=== PATIENT | male | born 1945 | race Caucasian/White ===

== ENCOUNTER → 2017-05-08 | Outpatient (CLI) | payer MEDICARE, OTHER ==
[~2017-05-08] MED LIST: ACTOS PO; ADVAIR 250-501 EACH IH; ALBUTEROL17 G1 INH; ALLERGY SHOTS; AMARYL PO; JANUVIA PO; LANTUS100 U/ML; LIPITOR PO; LISINOPRIL PO; PHENERGAN W/CO120 ML PO; ZITHROMAX PO
--- NOTE | ~2017-05-08 | CT57 ---
[facility] A Service of [facility] RADIOLOGY TEXT RESULTS PATIENT: SOSA RODRIGUEZ LOCATION: [facility] : 49 UNIT #: [id number] AGE: [address]: Nelly Sims SEX: M ORDER DR: [id number] [facility] [address] [place], [place] [address] [id number] O MR#: [id number] Acc #: [id number] NAME: SOSA RODRIGUEZ. : 1945 SEX: M STUDY DATE/TIME: 05/08/2017 14:43 UNIT: [facility] ROOM: STUDY DESCRIPTION: CT Chest Wo Cont Attending Physician: Nelly Sims A.P.R.N. Referring Physician: Nelly Sims A.P.R.N. Ordering Physician: Nelly Sims A.P.R.N. Primary Care Physician: Bertin Barrera M.D. MEDICAL IMAGING REPORT This report is preliminary unless electronic signature is present REVISED REPORT SEE ADDENDUM EXAM CT chest without contrast. INDICATION Follow up pulmonary nodule. Shortness of air with exertion for the past 1-[address] of the chest. This CT exam was performed with one or more of the following radiation dose reduction techniques: automatic exposure control, adjustment of mA and/or kV according to patient size, and iterative reconstruction. COMPARISON 06/03/16 FINDINGS 6 mm nodule posterior right middle lobe. A 6 mm nodule anterior right lower lobe. 10 mm nodule posterior left lower lobe. No definite new nodules. No dense consolidation, pleural fluid or pneumothorax. No adenopathy. Coronary artery calcification. Hepatic steatosis. No aggressive-appearing bone lesion. IMPRESSION 1. The above described nodules are unchanged dating back to 01/26/16. Recommend a follow-up scan in January of 2018 to document 2 years of stability. 2. Hepatic steatosis. [facility] A Service [facility] RADIOLOGY TEXT RESULTS PATIENT: SOSA RODRIGUEZ LOCATION: [facility] : 49 UNIT #: [id number] AGE: [address]: Nelly Sims SEX: M ORDER DR: Dictated by... Erickson Lott M.D. THIS IS AN ELECTRONICALLY VERIFIED REPORT Erickson Lott M.D. at 05/09/2017 9:29 AM EED/jt TD: 05/08/2017 17:54 JOB #: [id number] ADDENDUM The exam was reviewed at the request of Nelly Sims APRN. The ascending aorta measures about 3.8 cm in maximum dimension, which is within normal limits. This appears stable from 06/03/2016 and 02/05/2016, when measured similarly on both exams. JOB #:[id number] Dictated by... Sosa Pedro Jr., M.D. THIS IS AN ELECTRONICALLY VERIFIED REPORT Sosa Pedro Jr., M.D. at 05/22/2017 7:20 AM RLK/psc TD: 05/20/2017 21:23 JOB #: [id number] CC: Maday/invision Please Delete MEDICAL IMAGING REPORT Page 1 of 1 COPY
== END | disposition home or self-care (01) ==
LOC: CCAT 14:03
DX: R91.8 Other nonspecific abnormal finding of lung field (principal); K76.0 Fatty (change of) liver, not elsewhere classified
CPT/HCPCS: 71250